=== PATIENT | female | born 1960 | race American Indian/Alaskan Native ===

== ENCOUNTER 2016-10-24 13:25 | Emergency (ER) | payer MEDICAID, OTHER ==
[2016-10-24] MEDS ORDERED: FLEXERIL PO ONE (16:21)
[2016-10-24] MEDS ORDERED: NORCO 7.5/325 PO ONE (16:21)
[2016-10-24] MEDS ORDERED: DECADRON IM ONE (16:22)
[2016-10-24] MEDS ORDERED: ZESTRIL PO ONE (17:22)
[2016-10-24] MEDS ORDERED: CATAPRES PO ONE (17:22)
[2016-10-24 17:35] VITALS: BP 213/126
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
== END 2016-10-24 17:37 | disposition left against medical advice (07) ==
LOC: ED 13:25
DX: M54.42 Lumbago with sciatica, left side (principal); M54.41 Lumbago with sciatica, right side; F17.200 Nicotine dependence, unspecified, uncomplicated; I10 Essential (primary) hypertension; Z88.8 Allergy status to other drugs, medicaments and biological substances; Z88.6 Allergy status to analgesic agent
CPT/HCPCS: 96372; 99282; J1100

== ENCOUNTER 2018-07-17 12:49 | Emergency (ER) | payer OTHER ==
[2018-07-17] MEDS ORDERED: ULTRAM PO ONE (13:50)
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
[2018-07-17 18:23] VITALS: BP 155/78
== END 2018-07-17 17:03 | disposition home or self-care (01) ==
LOC: ED 12:49
DX: S16.1XXA Strain of muscle, fascia and tendon at neck level, initial encounter (principal); R07.89 Other chest pain; M54.5 Low back pain; I10 Essential (primary) hypertension; V49.49XA Driver injured in collision with other motor vehicles in traffic accident, initial encounter; Y93.89 Activity, other specified; Y92.89 Other specified places as the place of occurrence of the external cause; Y99.8 Other external cause status
CPT/HCPCS: 71250; 72100; 72125